=== PATIENT | female | born 1955 | race Caucasian/White ===

== ENCOUNTER → 2017-12-20 | Outpatient (CLI) | payer OTHER ==
[~2017-12-20] MED LIST: AMOX500 PO; LEVSOD88 PO; ONDA4ODT MM; THYROID; VALA500 PO
== END | disposition home or self-care (01) ==
LOC: LAB 16:56
DX: R35.0 Frequency of micturition (principal)
CPT/HCPCS: 87086

== ENCOUNTER → 2018-05-23 | Outpatient (CLI) | payer OTHER ==
[2018-05-23 12:37] LABS: BASOPHILS ABSOLUTE AUTO 0.05 K/mm3 (0.00-0.23); BASOPHILS PERCENT AUTO 1 % (0-2); EOSINOPHILS ABSOLUTE AUTO 0.27 K/mm3 (0.00-0.68); EOSINOPHILS PERCENT AUTO 5 % (0-6); Hematocrit 44.5 % (33.0-51.0); IMMATURE GRAN ABSOLUTE AUTO 0.02 K/mm3 (0.00-0.10); IMMATURE GRAN PERCENT AUTO 0 % (0-1); LYMPHOCYTES PERCENT AUTO 22 % (21-46); MONOCYTES ABSOLUTE AUTO 0.35 K/mm3 (0.16-1.47); MONOCYTES PERCENT AUTO 7 % (4-13); Mean Corpuscular HGB 29.4 pg (26.0-34.0); Mean Corpuscular HGB Conc 33.7 g/dL (31.5-36.5); Mean Corpuscular Volume 87 fL (80-100); NEUTROPHILS ABSOLUTE AUTO 3.46 K/mm3 (1.96-9.15); NEUTROPHILS PERCENT AUTO 65 % (41-73); RDW Coefficient Variation 12.3 % (11.7-14.2); RDW Standard Deviation 39.3 fL (35.1-46.3); Red Blood Cell Count 5.11 M/mm3 (3.80-5.20); White Blood Cell Count 5.35 K/mm3 (4.00-11.30)
[2018-05-23 12:55] LABS: Alanine Aminotransfer (ALT/SGP 34 U/L (12-78); Albumin, Blood 3.9 g/dL (3.4-5.0); Alk Phos 29 U/L (50-136); Anion Gap 7 mmol/L (6-16); Aspartate Aminotrans (AST/SGOT 23 U/L (12-37); Bilirubin, Total 0.4 mg/dL (0.1-1.0); Blood Urea Nitrogen 14 mg/dL (8-24); Bun/Creatinine Ratio 14.9 (12.0-20.0); CHOL/HDL RATIO 4.1; CO2, Blood 28 mmol/L (21-32); Calcium, Blood 8.8 mg/dL (8.5-10.1); Chloride, Blood 107 mmol/L (98-108); Cholesterol 195 mg/dL (50-200); Creatinine, Blood 0.94 mg/dL (0.40-1.00); Glomerular Filtration Rate >60 (60-); Glucose, Blood 107 mg/dL (70-99); HDL Cholesterol 47 mg/dL (>39); LDL/HDL RATIO 2.8; Low Density Lipoprotein Chol 130 mg/dL (0-110); Potassium, Blood 3.8 mmol/L (3.5-5.5); Sodium, Blood 142 mmol/L (136-145); Total Protein, Blood 7.9 g/dL (6.4-8.2); Triglycerides 90 mg/dL (30-160); Very Low Density Lipoprot Chol 18 mg/dL (6-32)
[2018-05-23 13:06] LABS: Mean Platelet Volume 10.1 fL (9.1-12.4); Platelet Count 258 K/mm3 (150-400)
== END ==
LOC: LAB SHORT 12:28
PROVIDERS: Nurse Practitioner Family
DX: E03.9 Hypothyroidism, unspecified (principal); I10 Essential (primary) hypertension
CPT/HCPCS: 80053; 80061; 84443; 85025

== ENCOUNTER → 2019-06-23 | Outpatient (CLI) | payer OTHER | END | disposition home or self-care (01) | LOC: LAB 13:45 → LAB SHORT 13:45 | DX: R30.0 Dysuria (principal) | CPT/HCPCS: 87086 ==

== ENCOUNTER → 2023-06-15 | Outpatient (CLI) | payer OTHER | LOC: LAB SHORT 12:34 → LAB 12:34 | DX: E11.9 Type 2 diabetes mellitus without complications (principal) | CPT/HCPCS: 82043 ==

== ENCOUNTER → 2023-10-01 | Outpatient (CLI) | payer OTHER ==
[2023-10-01 20:10] LABS: Albumin, Blood 3.5 g/dL (3.4-5.0); Albumin/Globulin Ratio 0.9 (0.8-1.8); Bilirubin, Total 0.2 mg/dL (0.1-1.0); Bun/Creatinine Ratio 22.3 (12.0-20.0); Calcium, Blood 9.4 mg/dL (8.5-10.1); Creatinine, Blood 0.9 mg/dL (0.40-1.00); Globulin, Blood 3.9 g/dL (2.2-4.0); Potassium, Blood 3.9 mmol/L (3.5-5.5); Total Protein, Blood 7.4 g/dL (6.4-8.2)
== END | disposition home or self-care (01) ==
LOC: LAB 19:01 → LAB SHORT 19:01
PROVIDERS: Nurse Practitioner Family
DX: E11.8 Type 2 diabetes mellitus with unspecified complications (principal)
CPT/HCPCS: 80053; 83036

== ENCOUNTER → 2023-12-10 | Outpatient (CLI) | payer OTHER ==
[2023-12-10 20:05] LABS: Free Thyroxine 1.36 ng/dL (0.70-1.60); Thyroid Stimulating Hormone 0.305 uIU/mL (0.360-4.800)
== END ==
LOC: LAB 17:05 → LAB SHORT 17:05
PROVIDERS: Nurse Practitioner Family
DX: E03.9 Hypothyroidism, unspecified (principal)
CPT/HCPCS: 84439; 84443

== ENCOUNTER → 2024-04-04 | Outpatient (CLI) | payer OTHER | END | disposition home or self-care (01) | LOC: LAB SHORT 14:45 → LAB 14:45 | DX: N39.0 Urinary tract infection, site not specified (principal) ==